=== PATIENT | female | born 1965 | race Caucasian/White ===

== ENCOUNTER → 2018-06-04 | Outpatient (CLI) | payer BC ==
--- NOTE | 2018-06-04 11:32 | KCIC ---
AP and Lateral Views of the Chest 06/04/2018 12:00 AM Indication: Fatigue, rheumatoid arthritis Comparison: None Findings: There is no focal consolidation or infiltrate identified. The cardiomediastinal silhouette is within normal limits. There is no evidence of pneumothorax or pleural effusion. No acute osseous abnormalities are identified. Impression: No evidence of acute cardiopulmonary process. Electronically signed by: Omar Sears MD (06/04/2018 11:29 AM) [id number]
== END | disposition home or self-care (01) ==
LOC: KCIC 09:05
PROVIDERS: ATTEND Nurse Practitioner
DX: R53.83 Other fatigue (principal); M06.9 Rheumatoid arthritis, unspecified; M35.9 Systemic involvement of connective tissue, unspecified; Z79.899 Other long term (current) drug therapy
CPT/HCPCS: 71046

== ENCOUNTER → 2019-03-24 | Outpatient (CLI) | payer BC ==
--- NOTE | 2019-03-24 18:52 | KCIC ---
PROCEDURE: LUMBAR SPINE MIN 4V STUDY DATE: 03/24/2019 CLINICAL INDICATION / HISTORY: Low back pain. Undifferentiated connective tissue disease. Arthritis.. TECHNIQUE: Standing AP, lateral, coned-down lateral and bilateral oblique views of the lumbar spine were obtained. COMPARISON: None FINDINGS: Five lumbar segments are identified. Lumbar vertebral bodies are normal in height and alignment. Mild disc space narrowing at L5-S1 is present. Disc height is otherwise maintained. Pedicles are intact. IMPRESSION: Minimal lumbosacral degenerative disc disease. Otherwise no significant lumbar spine abnormality shown by x-ray. PROCEDURE: Sacroiliac joints, 3 views Study date: 03/24/2019 INDICATION: Low back pain. Undifferentiated connective tissue disease and arthritis. TECHNIQUE: AP and bilateral oblique views of the sacroiliac joints were obtained. FINDINGS: Pelvic ring is intact. There is no diastases of the sacroiliac joints or bony erosion shown. No sclerosis is seen. The visualized hips and soft tissue are unremarkable. IMPRESSION: Negative x-ray series of the sacroiliac joints. No clear evidence of sacroiliitis. Consider MRI for further evaluation if there is a high clinical index of suspicion for sacroiliitis. Electronically signed by: Vicki Gentile MD (03/24/2019 4:12 PM) [facility]
== END | disposition home or self-care (01) ==
LOC: KCIC 15:11
PROVIDERS: ATTEND Nurse Practitioner
DX: M51.37 Other intervertebral disc degeneration, lumbosacral region (principal); M48.07 Spinal stenosis, lumbosacral region
CPT/HCPCS: 72110; 72202